=== PATIENT | female | born 1960 | race Caucasian/White ===

== ENCOUNTER → 2018-04-26 15:00 | Outpatient (CLI) | payer OTHER, SELFPAY | PROVIDERS: Family Provider Family Medicine; PCP Family Medicine | DX: Z23 Encounter for immunization (principal) | CPT/HCPCS: 90471; 90686 ==

== ENCOUNTER → 2018-07-05 08:52 | Outpatient (CLI) | payer OTHER, SELFPAY ==
--- NOTE | 2018-07-05 | DI.MG.S_ITS ---
BILATERAL DIGITAL SCREENING MAMMOGRAM 3D/2D WITH CAD: 07/05/2018 CLINICAL: Routine screening. Family history of breast cancer. Comparison is made to exams dated: 02/28/2017 mammogram, 02/25/2016 mammogram, and 12/10/2014 mammogram - [facility]. The tissue of both breasts is heterogeneously dense. This may lower the sensitivity of mammography. Current study was also evaluated with a Computer Aided Detection (CAD) system. No significant masses, calcifications, or other findings are seen in either breast. There has been no significant interval change. IMPRESSION: NEGATIVE There is no mammographic evidence of malignancy. A 1 year screening mammogram is recommended. This exam was interpreted at Station ID: [id number]. NOTE: For mammograms, a report in lay terms will be sent to the patient. Approximately 15% of breast malignancies will not be visualized mammographically. In the management of a palpable breast mass, a negative mammogram must not discourage biopsy of a clinically suspicious lesion. Electronically Signed By: Ibis nguyen/csar:07/05/2018 10:43:05 letter sent: Normal Exam ACR BI-RADS Category 1: Negative 3341F
== END ==
PROVIDERS: Family Provider Family Medicine; PCP Family Medicine; Visit Provider Family Medicine
DX: Z12.31 Encounter for screening mammogram for malignant neoplasm of breast (principal); Z80.3 Family history of malignant neoplasm of breast
CPT/HCPCS: 77063; 77067

== ENCOUNTER → 2019-05-17 17:20 | Outpatient (CLI) | payer OTHER, SELFPAY | PROVIDERS: PCP Family Medicine | DX: Z23 Encounter for immunization (principal) | CPT/HCPCS: 90471; 90686 ==

== ENCOUNTER → 2020-05-13 19:11 | Outpatient (CLI) | payer OTHER, SELFPAY | PROVIDERS: PCP Family Medicine; Referring Provider Internal Medicine; Visit Provider Internal Medicine | DX: Z23 Encounter for immunization (principal) | CPT/HCPCS: 90471; 90686 ==

== ENCOUNTER 2020-05-14 09:50 | Emergency (ER) | payer OTHER, SELFPAY ==
[2020-05-14] VITALS (23 sets, daily range): BP systolic 103–145; BP diastolic 64–95; PULSE 80–169; RESP 12–29; TEMP 36.1; O2SAT 97–100; BMI 24.3
--- NOTE | 2020-05-14 10:03 | DI.RAD.S_ITS ---
PROCEDURE: XR CHEST 2V INDICATIONS: shortness of breath TECHNIQUE: 2 views of the chest were acquired. COMPARISON: [facility], , CHEST 2 VIEW, 05/08/2015, 14:40. FINDINGS: Surgical changes and devices: None. Lungs and pleura: Lungs are clear. No pleural effusions or pneumothorax. Mediastinum: Mediastinal contours are normal. Heart size is normal. Bones and chest wall: No suspicious bony abnormalities. Soft tissues appear unremarkable. IMPRESSION: No acute cardiopulmonary pathology. Dictated by: Isidro Rosales M.D. on 05/14/2020 at 10:25 Approved by: Isidro Rosales M.D. on 05/14/2020 at 10:25
[2020-05-14 10:08] LABS: Add Manual Diff / Slide Review NO; Basophils Absolute Auto 0 /uL (0-100); Basophils Percent Auto 0.7 % (0-2); Eosinophils Absolute Auto 100 /uL (0-450); Eosinophils Percent Auto 1.9 % (2-4); Hematocrit 43.6 % (36-46); Lymphocytes Absolute Auto 1800 /uL (1100-4500); Lymphocytes Percent Auto 24.5 % (25-40); Mean Corpuscular HGB Conc 34.4 % (30-36); Mean Corpuscular Hemoglobin 33.3 PG (26-34); Monocytes Absolute Auto 900 /uL (0-900); Monocytes Percent Auto 11.9 % (3-14); Neutrophils Absolute Auto 4400 /uL (1500-7000); Platelet Count 227 X10^3/uL (150-400); White Blood Cell Count 7.3 X10^3/uL (4.5-11.0)
--- NOTE | 2020-05-14 10:20 | ED.ARRPALP ---
HPI - Arrhythmia/Palpitations General Chief Complaint: Arrhythmia/Palpitations Stated Complaint: a-fib/lightheaded/dizziness today Time Seen by Provider: 05/14/20 10:04 Source: patient Mode of arrival: Wheelchair Limitations: no limitations History of Present Illness HPI narrative: 59-year-old female with a history of atrial fibrillation. She has had this in the past. She has been cardioverted in the past for this was several years ago. She has also seen a client development consultant not currently on medications for anticoagulation. Has had episodes where they have resolved on their own. The episode that brought her to the emergency department today she states started this morning. Went to bed last evening without symptoms. Describes chest discomfort shortness of breath and lightheadedness. Has not tried anything for symptoms prior to arrival. Related Data Previous Rx's Medication Instructions Recorded rivaroxaban [Xarelto] 20 mg PO QPM #30 tab 05/14/20 Allergies Allergy/AdvReac Type Severity Reaction Status Date / Time No Known Drug Allergies Allergy Verified 05/14/20 10:01 Review of Systems Constitutional Constitutional: Denies fever(s) and Denies headache(s) ENT Ears, Nose, Mouth, and Throat: Denies headache(s) Cardiovascular Cardiovascular: Reports chest pain, Reports rapid heart rate, Reports irregular heart rhythm and Reports dyspnea Respiratory Respiratory: Denies cough and Reports dyspnea Gastrointestinal Gastrointestinal: Denies abdominal pain, Denies nausea and Denies vomiting Genitourinary Genitourinary: Denies dysuria Genitourinary: Denies dysuria Musculoskeletal Musculoskeletal: Denies arthralgias and Denies myalgias Integumentary/Breasts Skin/Breast: Denies rash Neurologic Neurologic: Denies behavioral changes and Denies headache(s) Psychiatric Psychiatric: Denies behavioral changes Hematologic/Lymphatic Hematologic/Lymphatic: Denies easy bleeding and Denies easy bruising Allergic/Immunologic Allergic/Immunologic: Denies urticaria Patient History Medical History Atrial fibrillation (Acute) Social History Smoking Status: Unknown if ever smoked Smoking Status: Unknown if ever smoked alcohol intake frequency: 3 or more drinks per day Substance Use Type: marijuana Exam Initial Vital Signs Initial Vital Signs: Vital Signs Temperature 97.0 F L 05/14/20 09:55 Pulse Rate 155 H 05/14/20 09:55 Respiratory Rate 23 05/14/20 09:55 Blood Pressure 145/95 H 05/14/20 09:55 Pulse Oximetry 99 05/14/20 09:55 Const General: cooperative and No comfortable (Uncomfortable) Limitations: mental status not altered HENMT Head: normal to inspection and normocephalic Resp Effort & Inspection: normal respiratory effort Auscultation: clear to auscultation bilaterally Cardio Rate: tachycardic Rhythm: abnormal rhythm Pulses: radial pulses present GI Inspection: non-distended Palpation: soft Skin Lesions: no lesions Rashes: no rashes Neuro General: patient alert and patient awake Cognition: normal cognition Speech: speech normal Extrem General: normal to inspection and capillary refill normal Psych Appearance: grossly normal and well kempt Procedures Cardioversion Consent Signed: Yes Indication: AFib with RVR Stability: Stable Number of attempts (shocks): 1 Joules used: 150 Cardiac rhythm post-cardioversion: Sinus rhythm Procedural Sedation Consent signed: Yes Time out performed: Yes Indication: cardioversion ASA Class: II Mallampati Airway Classification: Class II Preparation: solder leveler printed circuit boards applied, pulse oximeter, capnometry used, supplemental O2 applied and reversal agents at bedside IV Propofol dose (mg): 100 ED Sedation Level: Moderate (Concious) Patient Tolerated Procedure: No complications Complications: none Course Orders Ordered: ED Orders 05/14/20 10:00 Complete Blood Count AUTO DIFF Stat Comprehensive Metabolic Panel Stat Lactate (Lactic Acid) Stat 05/14/20 10:03 XR chest 2V Stat EKG-12 Lead Stat Measure peak expiratory flow ONCE RT Consult Eval and Treat Now 05/14/20 10:25 RT Consult Eval and Treat Now Discontinued Medications Propofol (Diprivan) 100 mg IV NOW ONE Stop: 05/14/20 10:25 Last Admin: 05/14/20 10:42 Dose: 100 mg Documented by: CARMEN Rivaroxaban (Xarelto) 20 mg PO NOW ONE Stop: 05/14/20 11:59 Last Admin: 05/14/20 12:04 Dose: 20 mg Documented by: GEO Vital Signs Vital signs: Vital Signs - 8 hr 05/14/20 09:55 05/14/20 10:03 05/14/20 10:05 Temperature 97.0 F L Pulse Rate 155 H 145 H 158 H Respiratory Rate 23 15 16 Blood Pressure 145/95 H Blood Pressure [Left Arm] Pulse Oximetry 99 100 100 05/14/20 10:16 05/14/20 10:20 05/14/20 10:25 Temperature Pulse Rate 109 H 166 H 169 H Respiratory Rate 26 H 22 Blood Pressure 104/70 Blood Pressure [Left Arm] Pulse Oximetry 100 100 100 05/14/20 10:30 05/14/20 10:35 05/14/20 10:46 Temperature Pulse Rate 151 H 154 H 157 H Respiratory Rate 25 H 16 22 Blood Pressure 105/77 Blood Pressure [Left Arm] 105/77 Pulse Oximetry 100 100 100 05/14/20 10:50 05/14/20 10:55 05/14/20 11:00 Temperature Pulse Rate 86 82 80 Respiratory Rate 28 H 29 H Blood Pressure 115/78 117/74 103/70 Blood Pressure [Left Arm] Pulse Oximetry 97 100 100 05/14/20 11:05 05/14/20 11:10 05/14/20 11:15 Temperature Pulse Rate 82 80 82 Respiratory Rate 17 23 26 H Blood Pressure 107/68 105/64 110/65 Blood Pressure [Left Arm] Pulse Oximetry 97 100 97 05/14/20 11:20 05/14/20 11:25 05/14/20 11:30 Temperature Pulse Rate 85 83 87 Respiratory Rate 16 12 18 Blood Pressure 108/68 112/70 115/71 Blood Pressure [Left Arm] Pulse Oximetry 99 99 97 05/14/20 11:35 05/14/20 11:40 05/14/20 11:45 Temperature Pulse Rate 87 94 H 92 H Respiratory Rate 13 20 19 Blood Pressure 114/70 116/70 115/72 Blood Pressure [Left Arm] Pulse Oximetry 98 97 97 05/14/20 11:50 Temperature Pulse Rate 91 H Respiratory Rate 20 Blood Pressure 128/75 Blood Pressure [Left Arm] Pulse Oximetry 98 MDM - Arrhythmia/Palpitations Lab Data Attestation: I reviewed the patient's lab results. Result diagrams: 05/14/20 10:00 05/14/20 10:00 Labs: Lab Results 05/14/20 05/14/20 05/14/20 Range/Units 10:00 10:00 10:00 WBC 7.3 (4.5-11.0) X10^3/uL RBC 4.50 (4.0-5.2) X10^6/uL Hgb 15.0 (12.0-16.0) g/dL Hct 43.6 (36-46) % MCV 97.0 (80-100) fL MCH 33.3 (26-34) PG MCHC 34.4 (30-36) % RDW 15.0 H (11.6-14.8) % Plt Count 227 (150-400) X10^3/uL Neut % (Auto) 61.0 (50-75) % Lymph % (Auto) 24.5 L (25-40) % [place] % (Auto) 11.9 (3-14) % Eos % (Auto) 1.9 L (2-4) % Baso % (Auto) 0.7 (0-2) % Neut # (Auto) 4400 (6127-9872) /uL Lymph # (Auto) 1800 (4638-4946) /uL [place] # (Auto) 900 (0-900) /uL Eos # (Auto) 100 (0-450) /uL Baso # (Auto) 0 (0-100) /uL Sodium 138 (137-145) mmol/L Potassium 4.0 (3.4-5.1) mmol/L Chloride 100 (98-107) mmol/L Carbon Dioxide 28 (22-32) mmol/L BUN 8 (7-17) mg/dL Creatinine 0.77 (0.52-1.04) mg/dL Estimated GFR > 60.0 (>60) mL/min BUN/Creatinine Ratio 10.4 (6-22) Glucose 141 H (70-100) mg/dL Lactate 1.9 (0.7-2.1) mmol/L Calcium 10.1 (8.4-10.2) mg/dL Total Bilirubin 0.8 (0.2-1.3) mg/dL AST 45 H (14-36) IU/L ALT 35 H (<35) IU/L Alkaline Phosphatase 73 (38-126) U/L Total Protein 8.7 H (6.3-8.2) g/dL Albumin 4.8 (3.5-5.0) g/dL Globulin 3.9 (1.7-4.1) g/dL Albumin/Globulin Ratio 1.2 (1.0-2.8) Point of Care Testing Test Results Not applicable Imaging Data CT scan - head: Radiologist's Impresson: [place] [id number] [place] [id number] XRay Report Signed Patient: Galileo Voss#: [id number] : 2Acct:[id number] Age/Sex: 59 / FDate of Service: 05/14/20 Loc: ED Accession Number: [id number] Procedure: XR chest 2V Ordering Provider: Yoni Cortes D.O. PROCEDURE: XR CHEST 2V INDICATIONS: shortness of breath TECHNIQUE: 2 views of the chest were acquired. COMPARISON: [facility], , CHEST 2 VIEW, 05/08/2015, 14:40. FINDINGS: Surgical changes and devices: None. Lungs and pleura: Lungs are clear. No pleural effusions or pneumothorax. Mediastinum: Mediastinal contours are normal. Heart size is normal. Bones and chest wall: No suspicious bony abnormalities. Soft tissues appear unremarkable. IMPRESSION: No acute cardiopulmonary pathology. Dictated by: Isidro Rosales M.D. on 05/14/2020 at 10:25 Approved by: Isidro Rosales M.D. on 05/14/2020 at 10:25 ECG Data Attestation: I personally reviewed and interpreted this ECG as follows: Prior ECG tracings: not available for review Interpretation: EKG upon arrival Atrial flutter/fibrillation Ventricular rate of 14 8 Normal axis Post cardioversion EKG Sinus rhythm Ventricular rate is 71 Left axis deviation MDM Narrative Medical decision making narrative: Patient arrived less than 24 hours of the onset of her symptoms. She was AFib with RVR. Not hypotensive. Not altered. Discussed her options to include rhythm control with cardioversion and sedation verses rate control with medications. Discussed risks and benefits of each to include sedations in the risk and benefits of this and also the possibility being admitted to the hospital. We also discussed that with the cardioversion there is a potential that would be unsuccessful and would not guarantee that the symptoms did not return. After this discussion with family at bedside she opted for sedation and cardioversion. Consent was signed. She was sedated with propofol and cardioverted with 1 attempt without issue. She was given a dose of anticoagulation here and sent home with a prescription for this. She is going to contact her primary provider about a Holter monitor verses a referral to see Cardiology once again. She was given return precautions and follow-up instructions. She expressed understanding and agreement. Critical Care Time Critical Care Time Critical Care Time: Yes Total Critical Care Time: 35 Attestation: The high probability of a clinically significant, sudden or life threatening deterioration of the cardiovascular system(s) required my full and direct attention, intervention and personal management. The aggregate critical care time was 35 minutes. This time is in addition to time spent performing reported procedures but includes the following: [X] Data Review and interpretation [FX] Patient assessment and monitoring of vital signs [X] Documentation [FX] Medication orders and management Discharge Plan Departure Patient Disposition: Home Clinical Impression: Atrial fibrillation Qualifiers: Atrial fibrillation type: unspecified Qualified Code(s): I48.91 - Unspecified atrial fibrillation Instructions: DI for Atrial Fibrillation Activity Restrictions/Additional Instructions: I do recommend that you take the anticoagulation as directed. Also recommend you contact your primary doctor to discuss further workup to include either a Holter monitor or referral to see Cardiology. Return to the emergency department for any new or worsening symptoms Prescriptions: New Xarelto 20 mg tablet 20 mg PO QPM Qty: 30 RF: 0 Referrals: Nhung Guerrero MD [Primary Care Provider] -
[2020-05-14 10:25] LABS: Lactate (Lactic Acid) 1.9 mmol/L (0.7-2.1)
[2020-05-14 10:26] LABS: Alanine Aminotransferase 35 IU/L (<35); Albumin 4.8 g/dL (3.5-5.0); Albumin Globulin Ratio 1.2 (1.0-2.8); Alkaline Phosphatase 73 U/L (38-126); Aspartate Aminotransferase 45 IU/L (14-36); BUN Creatinine Ratio 10.4 (6-22); Bilirubin Total 0.8 mg/dL (0.2-1.3); Blood Urea Nitrogen 8 mg/dL (7-17); Calcium 10.1 mg/dL (8.4-10.2); Carbon Dioxide 28 mmol/L (22-32); Chloride 100 mmol/L (98-107); Estimated Glomerular Filt Rate > 60.0 mL/min (>60); Globulin 3.9 g/dL (1.7-4.1); Glucose 141 mg/dL (70-100); HEMOLYSIS 15 (0-50); Sodium 138 mmol/L (137-145); Total Protein 8.7 g/dL (6.3-8.2)
[2020-05-14] MEDS: propofoL 200 MG/20 ML VIAL 100 MG IV (10:42)
[2020-05-14] MEDS: RIVAROXABAN 10 MG TABLET 20 MG PO (12:04)
--- NOTE | 2020-06-30 16:12 | PC.NURSE ---
Procedural stop time [id number]
== END 2020-05-14 12:37 | disposition home or self-care (01) ==
PROVIDERS: Emergency Provider Emergency Medicine; PCP Family Medicine
DX: I48.91 Unspecified atrial fibrillation (principal); Z79.01 Long term (current) use of anticoagulants; R06.02 Shortness of breath
CPT/HCPCS: 36415; 71046; 80053; 83605; 85025; 92960; 93005; 99152; 99153; 99285; 99291; J2704

== ENCOUNTER → 2020-06-04 14:16 | Outpatient (CLI) | payer OTHER, SELFPAY ==
--- NOTE | 2020-06-04 | DI.MG.S_ITS ---
BILATERAL DIGITAL SCREENING MAMMOGRAM 3D/2D WITH CAD: 06/04/2020 CLINICAL: Routine screening. Family history of breast cancer. Comparison is made to exams dated: 07/05/2018 mammogram, 02/28/2017 mammogram, and 02/25/2016 mammogram - [facility]. The tissue of both breasts is heterogeneously dense. This may lower the sensitivity of mammography. Current study was also evaluated with a Computer Aided Detection (CAD) system. No significant masses, calcifications, or other findings are seen in either breast. There has been no significant interval change. IMPRESSION: NEGATIVE There is no mammographic evidence of malignancy. A 1 year screening mammogram is recommended. This exam was interpreted at Station ID: [id number]. NOTE: For mammograms, a report in lay terms will be sent to the patient. Approximately 15% of breast malignancies will not be visualized mammographically. In the management of a palpable breast mass, a negative mammogram must not discourage biopsy of a clinically suspicious lesion. Electronically Signed By: Elisabeth luu/scar:06/04/2020 17:24:55 letter sent: Normal Exam ACR BI-RADS Category 1: Negative 3341F
== END ==
PROVIDERS: PCP Family Medicine; Referring Provider Family Medicine; Visit Provider Family Medicine
DX: Z12.31 Encounter for screening mammogram for malignant neoplasm of breast (principal); Z80.3 Family history of malignant neoplasm of breast
CPT/HCPCS: 77063; 77067

== ENCOUNTER → 2020-08-14 11:09 | Outpatient (CLI) | payer OTHER, SELFPAY ==
[2020-08-14] MEDS: COVID-19 VACC(MODERNA-1)/PF 100 MCG/0.5 ML VIAL IM (11:14)
== END ==
PROVIDERS: PCP Family Medicine; Visit Provider Internal Medicine
DX: Z23 Encounter for immunization (principal)
CPT/HCPCS: 0011A; 91301

== ENCOUNTER → 2020-09-10 10:44 | Outpatient (CLI) | payer OTHER, SELFPAY ==
[2020-09-10] MEDS: COVID-19 VACC #2, MRNA(MOD) 100 MCG/0.5 ML VIAL IM (10:49)
== END ==
PROVIDERS: PCP Family Medicine; Visit Provider Internal Medicine
DX: Z23 Encounter for immunization (principal)
CPT/HCPCS: 0012A; 91301

== ENCOUNTER → 2021-06-04 13:35 | Outpatient (CLI) | payer OTHER, SELFPAY | PROVIDERS: PCP Family Medicine; Referring Provider Internal Medicine; Visit Provider Internal Medicine | DX: Z23 Encounter for immunization (principal) | CPT/HCPCS: 90471; 90686 ==

== ENCOUNTER → 2021-11-11 09:23 | Outpatient (CLI) | payer OTHER, SELFPAY ==
[2021-11-11 10:25] LABS: Add Manual Diff / Slide Review NO; Basophils Absolute Auto 0 /uL (0-100); Basophils Percent Auto 1.2 % (0-2); Eosinophils Absolute Auto 200 /uL (0-450); Eosinophils Percent Auto 5.6 % (2-4); Hematocrit 37.3 % (36-46); Hemoglobin 12.9 g/dL (12.0-16.0); Lymphocytes Absolute Auto 1300 /uL (1100-4500); Lymphocytes Percent Auto 33.6 % (25-40); Mean Corpuscular HGB Conc 34.5 % (30-36); Mean Corpuscular Hemoglobin 33.3 PG (26-34); Mean Corpuscular Volume 96.4 fL (80-100); Monocytes Absolute Auto 400 /uL (0-900); Neutrophils Absolute Auto 1900 /uL (1500-7000); Neutrophils Percent Auto 48.6 % (50-75); Platelet Count 192 X10^3/uL (150-400); Red Blood Cell Count 3.87 X10^6/uL (4.0-5.2); Red Cell Distribution Width 14.4 % (11.6-14.8); White Blood Cell Count 3.9 X10^3/uL (4.5-11.0)
[2021-11-11 10:39] LABS: Alanine Aminotransferase 19 IU/L (<35); Albumin 4.8 g/dL (3.5-5.0); Albumin Globulin Ratio 1.4 (1.0-2.8); Alkaline Phosphatase 59 U/L (38-126); Aspartate Aminotransferase 31 IU/L (14-36); BUN Creatinine Ratio 11.4 (6-22); Bilirubin Total 0.5 mg/dL (0.2-1.3); Blood Urea Nitrogen 8 mg/dL (7-17); Calcium 9.5 mg/dL (8.4-10.2); Carbon Dioxide 27 mmol/L (22-32); Chloride 103 mmol/L (98-107); Estimated Glomerular Filt Rate > 60.0 mL/min (>60); Globulin 3.5 g/dL (1.7-4.1); Glucose 84 mg/dL (70-100); HEMOLYSIS < 15 (0-50); Potassium 4.3 mmol/L (3.4-5.1); Sodium 140 mmol/L (137-145); Total Protein 8.3 g/dL (6.3-8.2)
[2021-11-11 10:50] LABS: LDL Cholesterol Direct 118 mg/dL (<100)
[2021-11-11 11:02] LABS: Vitamin D 25 Hydroxy (D3) 59.6 ng/mL (30.0-100.0)
[2021-11-11 11:14] LABS: Thyroid Stimulating Hormone 1.83 uIU/mL (0.47-4.68)
== END ==
PROVIDERS: PCP Family Medicine; Referring Provider Family Medicine; Visit Provider Family Medicine
DX: Z00.00 Encounter for general adult medical examination without abnormal findings (principal); E55.9 Vitamin D deficiency, unspecified
CPT/HCPCS: 36415; 80053; 82306; 83721; 84443; 85025

== ENCOUNTER → 2021-11-26 15:08 | Outpatient (CLI) | payer OTHER, SELFPAY ==
--- NOTE | 2021-12-16 10:52 | P.HOLT.S_ITS ---
Auto Mechanic Apprentice Report Referral & Results Date Patient Seen: 11/26/21 Requesting provider: Nhung Guerrero Indication: Atrial fibrillation Duration of monitoring (days): 13 Diary information: There were 3 patient triggered events and 3 patient diary entries Patient triggered events were variably associated with (within 45 seconds) sinus rhythm, PACs and PVCs Patient diary events were variably associated with (within 45 seconds) sinus rhythm and PVCs Data: Minimum heart rate identified was 50 beats per minute at 16:38 on 12/01/2021 Maximum sinus heart rate was 130 beats per minute at 20:30 on 12/02/2021 Maximum overall heart rate was 210 beats per minute at 12:46 on 12/06/2021 during a run of SVT Less than 1% of identified beats were supraventricular ectopic in origin which classify them as rare Approximately 2.6% of identified beats were ventricular ectopic in origin which would classify them as occasional. This included a 3.2 second run of ventricular bigeminy and 16.7 second run of ventricular trigeminy There were 51 runs of SVT with the fastest being a 20.3 second run at a rate of 210 beats per minute. This was also the longest run There were no pauses of 3 seconds or longer or episodes of atrial fibrillation identified on this study Impression: 13 day monitoring and evaluation advisor demonstrating rare brief runs of SVT as well as occasional PVCs No atrial fibrillation Clinical correlation suggested
== END ==
PROVIDERS: PCP Family Medicine; Referring Provider Family Medicine; Visit Provider Family Medicine
DX: I48.91 Unspecified atrial fibrillation (principal)
CPT/HCPCS: 93246; 93248

== ENCOUNTER → 2021-12-25 09:12 | Outpatient (CLI) | payer OTHER, SELFPAY ==
--- NOTE | 2021-12-25 | DI.MG.S_ITS ---
BILATERAL DIGITAL SCREENING MAMMOGRAM 3D/2D WITH CAD: 12/25/2021 CLINICAL: Routine screening. Family history of breast cancer. Comparison is made to exams dated: 06/04/2020 mammogram, 07/05/2018 mammogram, and 02/28/2017 mammogram - [facility]. The tissue of both breasts is heterogeneously dense. This may lower the sensitivity of mammography. Current study was also evaluated with a Computer Aided Detection (CAD) system. No significant masses, calcifications, or other findings are seen in either breast. There has been no significant interval change. IMPRESSION: NEGATIVE There is no mammographic evidence of malignancy. A 1 year screening mammogram is recommended. This exam was interpreted at Station ID: [id number]. NOTE: For mammograms, a report in lay terms will be sent to the patient. Approximately 15% of breast malignancies will not be visualized mammographically. In the management of a palpable breast mass, a negative mammogram must not discourage biopsy of a clinically suspicious lesion. Electronically Signed By: Henrik aguila/scar:12/25/2021 10:18:30 letter sent: Normal Exam ACR BI-RADS Category 1: Negative 3341F
== END ==
PROVIDERS: PCP Family Medicine; Referring Provider Family Medicine; Visit Provider Family Medicine
DX: Z12.31 Encounter for screening mammogram for malignant neoplasm of breast (principal); Z80.3 Family history of malignant neoplasm of breast
CPT/HCPCS: 77063; 77067

== ENCOUNTER → 2022-01-06 07:54 | Outpatient (CLI) | payer OTHER, SELFPAY ==
--- NOTE | 2022-01-06 | DI.ECHO.S_ITS ---
[facility]---------[facility] +---------+ : : [address] : : : : [id number] : : : : Phone: [phone] Echocardiogram Report + + :Name: PAULO FUNG Study Date: 01/06/2022 Height: 68 in : :[facility] ReadingLocation: Weight: 170 lb : : Gender: Female BSA: 1.9 m2 : :: 1960 Age: 61 yrs BP: 137/80 mmHg: :Reason For Study: ATRIAL FIBRILLATION : :Ordering Physician: NORMAN, : :MARILEE Performed By: Leilani Ho : :Referring: MARILEE AUSTIN : + + Interpretation Summary 1) Normal left ventricular size, thickness, wall motion, and systolic function (EF 55-60%). 2) Normal right ventricular size and function. 3) No significant valvular abnormalities. 4) Compared to the Echo done 04/24/2015, no significant change. Procedure: A two-dimensional transthoracic echocardiogram with color flow and Doppler was performed. The study quality was technically adequate. Comparison is made with the echocardiogram of 04/24/2015. The patient was in sinus rhythm with heart rates between 66-74 bpm during the exam. Left Ventricle: The left ventricle is normal in size and wall thickness. The ejection fraction is estimated to be 55-60%. Left ventricular systolic function appears normal without focal wall motion abnormalities. Diastolic parameters suggest a relaxation abnormality of the left ventricle, consistent with probable normal filling pressures. Right Ventricle: The right ventricle is normal in size and function. Atria: The left atrium is moderately dilated. Right atrial size is normal. There is no Doppler evidence for an interatrial shunt. Mitral Valve: The mitral valve is normal in structure and function. There is mild mitral regurgitation. Aortic Valve: The aortic valve is trileaflet. The aortic valve opens well. There is no aortic valve stenosis. No aortic regurgitation is present. Tricuspid Valve: The tricuspid valve is normal in structure and function. There is trace tricuspid regurgitation. The right ventricular systolic pressure is estimated to be at least 23 mmHg based on an estimated right atrial pressure of 3 mm Hg. Pulmonic Valve: The pulmonic valve is not well seen, but is grossly normal. There is no pulmonic valvular regurgitation. Great Vessels: The aortic root is normal size. The dimensions of the ascending aorta are normal. The IVC is of normal diameter and collapses greater than 50% with a sniff. This suggests a low right atrial pressure of 3 mm Hg. Pericardium/ Pleura There is no pericardial effusion. There is no pleural effusion. MMode/2D Measurements & Calculations LVIDd: 4.9 cm LVOT diam: 2.0 cm LVIDs: 3.6 cm Ao root diam: 3.0 cm FS: 26.2 % asc Aorta Diam: 3.1 cm IVSd: 0.71 cm Ao Arch Diam (Prox Trans): 2.5 cm LVPWd: 0.71 cm LV shelton. diameter/BSA (cm/m^2): 2.6 LV sys. diameter/BSA (cm/m^2): 1.9 LA A2 area: 24.1 cm2 RA long axis: 5.0 cm LA A4 area: 20.0 cm2 RA area: 18.4 cm2 LA length (vol): 5.2 cm RA vol: 57.4 ml LA vol: 78.3 ml RA : 30.1 ml/m2 LA vol index: 41.1 ml/m2 IVC diam: 0.86 cm RVD1 (basal): 4.0 cm RVD2 (mid): 3.7 cm TAPSE: 2.2 cm Doppler Measurements & Calculations Ao V2 max: 118.4 cm/sec LVOT Max Jacob: 101.8 cm/sec Ao V2 mean: 78.3 cm/sec LV V1 max P.1 mmHg Ao max P.6 mmHg LV V1 VTI: 23.1 cm Ao mean P.8 mmHg DL(I,D): 3.3 cm2 Ao V2 VTI: 23.0 cm DL(V,D): 2.8 cm2 sev ratio: 1.0 DL indexed to BSA (cm^2/m^2): 1.7 MV E max jacob: 60.3 cm/sec TR max jacob: 226.4 cm/sec MV A max jacob: 53.8 cm/sec TR max P.5 mmHg MV E/A: 1.1 PA V2 max: 72.3 cm/sec Med Peak E' Jacob: 10.1 cm/sec PA V2 mean: 48.2 cm/sec E/E' med: 6.0 PA mean P.1 mmHg Lat Peak E' Jacob: 12.5 cm/sec PA pr(Accel): 7.1 mmHg E/E' lat: 4.8 E/e' average: 5.4 MV dec time: 0.27 sec SV(LVOT): 76.0 ml Reading Physician:09:00 AM
== END ==
PROVIDERS: PCP Family Medicine; Referring Provider Family Medicine; Visit Provider Family Medicine
DX: I48.0 Paroxysmal atrial fibrillation (principal); I34.0 Nonrheumatic mitral (valve) insufficiency
CPT/HCPCS: 93306

== ENCOUNTER 2023-01-05 16:49 | Emergency (ER) | payer OTHER, SELFPAY ==
[2023-01-05] VITALS (18 sets, daily range): BP systolic 135–163; BP diastolic 70–90; PULSE 72–146; RESP 16–29; TEMP 36.5–37.2; O2SAT 77–100; BMI 27.3
--- NOTE | 2023-01-05 16:57 | ED_ITS ---
HPI - Arrhythmia/Palpitations General Chief Complaint: Arrhythmia/Palpitations Stated Complaint: irregular rhythm Time Seen by Provider: 01/05/23 16:55 History of Present Illness HPI narrative: This is a 62-year-old female with history of AFib, alcohol abuse with complaint of atrial fibrillation and fast heart rate and dizziness. Patient states she started having symptoms about 9:00 a.m. this morning she is felt very dizzy she is had some nausea couple episodes of vomiting. She is had a little bit of diarrhea. She is felt shaky even before her dizziness and fast heart rate. She thought her symptoms might improve so she did not come into the emergency department. Patient denies fevers, no headache, no vision changes, she states she feels dizzy. She denies any chest pain or pressure, she is felt short of breath today. She states it started at 9:00 a.m. this morning. Patient had some nausea and vomiting. She states no diarrhea but she is had a lot of gas. She denies abdominal pain, back or flank pain. Patient denies any urinary symptoms. Denies swelling in her extremities. She states her only medication is beta-matthew she does not recall the name, she states she is not on any anticoagulation, no aspirin. She denies any recent surgeries. She does drink 5-6 alcoholic drinks daily she had quit for a couple months and then started drinking again and just stopped drinking 3 days ago. Patient did not think she was having any withdrawals. Uses THC. Denies other illicit. Primary care is Mag Guerrero. Related Data Previous Rx's Medication Instructions Recorded rivaroxaban 20 mg tablet (Xarelto) 20 mg PO QPM #30 tabs 05/14/20 Allergies Allergy/AdvReac Type Severity Reaction Status Date / Time No Known Drug Allergies Allergy Verified 05/14/20 10:01 Review of Systems Review of Systems ROS Unobtainable: All systems reviewed & are unremarkable except as noted in HPI and below Patient History Medical History (Updated 01/05/23 @ 18:49 by Kaylie Tinajero DO) Atrial fibrillation Social History Smoking Status: Unknown if ever smoked Smoking Status: Unknown if ever smoked alcohol intake frequency: 3 or more drinks per day Substance Use Type: marijuana Exam Narrative Exam Narrative: GENERAL: Alert and oriented x three, female in moderate distress. Patient is slightly shaky. HEENT: Head normocephalic, atraumatic, EOMI, pupils reactive, face symmetric, moist mucous membranes NECK: Supple, full range of motion CARDIOVASCULAR: Irregularly irregular and tachycardic rate and rhythm without murmurs, rubs or gallops. No JVD. No swelling bilateral lower extremities. RESPIRATORY: Breath sounds equal bilaterally, no wheezes rales or rhonchi. No tachypnea or accessory muscle use. Patient's speaks in full sentences. ABDOMEN: Soft, nontender. Normoactive bowel sounds all 4 quadrants. No guarding or rebound, rigidity, no mass : No CVA tenderness EXTREMITIES: Normal range of motion, no clubbing or edema. Neurovascularly intact NEUROLOGICAL: Cranial nerves II through XII grossly intact. Moving all extremit ies SKIN: Warm, dry, no petechiae, no rashes or lesions. Initial Vital Signs Initial Vital Signs: Vital Signs Pulse Rate 125 H 01/05/23 16:55 Respiratory Rate 29 H 01/05/23 16:55 Course Orders Ordered: Discontinued Medications Diltiazem HCl (Diltiazem 5 Mg/Ml Sdv) 10 mg IV NOW ONE Stop: 01/05/23 17:03 Last Admin: 01/05/23 18:00 Dose: Not Given Documented By: DAVE Sodium Chloride (Normal Saline 0.9%) 1,000 mls @ 1,000 mls/hr IV BOLUS ONE Stop: 01/05/23 18:01 Last Infusion: 01/05/23 18:28 Dose: 0 mls/hr Documented By: Admin: 01/05/23 17:15 Dose: 1,000 mls/hr Documented By: DAVE Phenobarbital (Phenobarbital 65 Mg/Ml Vial) 260 mg IV NOW ONE Stop: 01/05/23 17:24 Last Admin: 01/05/23 17:36 Dose: 260 mg Documented By: DAVE Vital Signs Vital signs: Vital Signs - 8 hr 01/05/23 16:58 01/05/23 17:03 01/05/23 17:03 Temperature 99 F 97.7 F 97.7 F Pulse Rate 126 H 126 H 146 H Respiratory Rate 18 20 Blood Pressure 163/90 H 163/90 H 144/70 H Pulse Oximetry 99 97 97 Oxygen Delivery Method Room Air Room Air Room Air Oxygen Flow Rate 01/05/23 16:55 01/05/23 16:57 01/05/23 16:57 Temperature Pulse Rate 125 H 126 H Respiratory Rate 29 H 28 H Blood Pressure 163/90 H Pulse Oximetry 100 Oxygen Delivery Method Oxygen Flow Rate 01/05/23 17:00 01/05/23 17:00 01/05/23 17:25 Temperature Pulse Rate 126 H 76 Respiratory Rate 27 H 19 Blood Pressure 144/70 H Pulse Oximetry 100 100 Oxygen Delivery Method Room Air Oxygen Flow Rate 01/05/23 17:25 01/05/23 17:30 01/05/23 17:30 Temperature Pulse Rate 74 Respiratory Rate 23 Blood Pressure 140/72 148/77 H Pulse Oximetry 100 Oxygen Delivery Method Oxygen Flow Rate 01/05/23 17:40 01/05/23 17:40 01/05/23 17:50 Temperature Pulse Rate 75 74 Respiratory Rate 24 20 Blood Pressure 143/75 H Pulse Oximetry 100 95 Oxygen Delivery Method Oxygen Flow Rate 01/05/23 17:50 01/05/23 18:00 01/05/23 18:00 Temperature Pulse Rate 72 Respiratory Rate 16 Blood Pressure 141/75 H 135/77 Pulse Oximetry 100 Oxygen Delivery Method Nasal Cannula Oxygen Flow Rate 2 01/05/23 18:30 01/05/23 17:54 01/05/23 17:53 Temperature Pulse Rate 75 Respiratory Rate 20 Blood Pressure Pulse Oximetry 99 77 L 91 Oxygen Delivery Method Nasal Cannula Room Air Room Air Oxygen Flow Rate 2 01/05/23 19:10 01/05/23 19:00 01/05/23 19:32 Temperature Pulse Rate 87 90 Respiratory Rate 20 Blood Pressure Pulse Oximetry 94 99 Oxygen Delivery Method Room Air Nasal Cannula Oxygen Flow Rate 2 01/05/23 19:34 01/05/23 19:34 Temperature Pulse Rate 90 Respiratory Rate 21 Blood Pressure 141/87 H Pulse Oximetry 98 Oxygen Delivery Method Oxygen Flow Rate MDM - Arrhythmia/Palpitations Lab Data 01/05/23 17:25 01/05/23 17:25 Labs: Lab Results 01/05/23 01/05/23 01/05/23 Range/Units 17:25 17:25 17:25 WBC 4.6 (4.5-11.0) X10^3/uL RBC 4.47 (4.0-5.2) X10^6/uL Hgb 13.6 (12.0-16.0) g/dL Hct 39.8 (36-46) % MCV 89.2 (80-100) fL MCH 30.5 (26-34) PG MCHC 34.2 (30-36) % RDW 15.5 H (11.6-14.8) % Plt Count 165 (150-400) X10^3/uL Neut % (Auto) 76.5 H (50-75) % Lymph % (Auto) 16.3 L (25-40) % [place] % (Auto) 6.4 (3-14) % Eos % (Auto) 0.1 L (2-4) % Baso % (Auto) 0.7 (0-2) % Neut # (Auto) 3500 (5508-0733) /uL Lymph # (Auto) 700 L (4850-0456) /uL [place] # (Auto) 300 (0-900) /uL Eos # (Auto) 0 (0-450) /uL Baso # (Auto) 0 (0-100) /uL PT 12.2 (10.1-12.7) SECONDS INR 1.1 (0.9-1.3) APTT 25 L (26-36) SECONDS D-Dimer 557 H (<500) ng/ml Sodium 135 L (137-145) mmol/L Potassium 3.6 (3.4-5.1) mmol/L Chloride 99 (98-107) mmol/L Carbon Dioxide 19 L (22-32) mmol/L BUN 7 (7-17) mg/dL Creatinine 0.66 (0.52-1.04) mg/dL Estimated GFR > 60 (>60) mL/min BUN/Creatinine Ratio 10.6 (6-22) Glucose 184 H (80-110) mg/dL Calcium 9.3 (8.4-10.2) mg/dL Total Bilirubin 1.9 H (0.2-1.3) mg/dL AST 31 (14-36) IU/L ALT 24 (<35) IU/L Alkaline Phosphatase 95 (38-126) U/L Total Creatine Kinase 101 (30-135) U/L CK-MB (CK-2) TNP CK-MB (CK-2) Rel Index TNP Troponin I 0.012 (0.01-0.034) ng/mL NT-Pro-B Natriuret Pep (<125) pg/mL Total Protein 7.9 (6.3-8.2) g/dL Albumin 4.5 (3.5-5.0) g/dL Globulin 3.4 (1.7-4.1) g/dL Albumin/Globulin Ratio 1.3 (1.0-2.8) Lipase 132 (23-300) U/L TSH (0.47-4.68) uIU/mL U Opiates 300ng/mL cut (Negative) Ur Oxycodone Screen (Negative) Urine Methadone Screen (Negative) Ur Barbiturates Screen (Negative) U Tricyclic Antidepress (Negative) Ur Phencyclidine Scrn (Negative) Ur Amphetamines Screen (Negative) U Methamphetamines Scrn (Negative) Ur MDMA Scrn (Ecstasy) (Negative) U Benzodiazepines Scrn (Negative) Urine Cocaine Screen (Negative) U Marijuana (THC) Screen (Negative) Ethyl Alcohol ( - 10) mg/dL 01/05/23 01/05/23 01/05/23 Range/Units 17:25 17:25 18:24 WBC (4.5-11.0) X10^3/uL RBC (4.0-5.2) X10^6/uL Hgb (12.0-16.0) g/dL Hct (36-46) % MCV (80-100) fL MCH (26-34) PG MCHC (30-36) % RDW (11.6-14.8) % Plt Count (150-400) X10^3/uL Neut % (Auto) (50-75) % Lymph % (Auto) (25-40) % [place] % (Auto) (3-14) % Eos % (Auto) (2-4) % Baso % (Auto) (0-2) % Neut # (Auto) (9783-0783) /uL Lymph # (Auto) (8118-2553) /uL [place] # (Auto) (0-900) /uL Eos # (Auto) (0-450) /uL Baso # (Auto) (0-100) /uL PT (10.1-12.7) SECONDS INR (0.9-1.3) APTT (26-36) SECONDS D-Dimer (<500) ng/ml Sodium (137-145) mmol/L Potassium (3.4-5.1) mmol/L Chloride (98-107) mmol/L Carbon Dioxide (22-32) mmol/L BUN (7-17) mg/dL Creatinine (0.52-1.04) mg/dL Estimated GFR (>60) mL/min BUN/Creatinine Ratio (6-22) Glucose (80-110) mg/dL Calcium (8.4-10.2) mg/dL Total Bilirubin (0.2-1.3) mg/dL AST (14-36) IU/L ALT (<35) IU/L Alkaline Phosphatase (38-126) U/L Total Creatine Kinase (30-135) U/L CK-MB (CK-2) CK-MB (CK-2) Rel Index Troponin I (0.01-0.034) ng/mL NT-Pro-B Natriuret Pep 1490 H (<125) pg/mL Total Protein (6.3-8.2) g/dL Albumin (3.5-5.0) g/dL Globulin (1.7-4.1) g/dL Albumin/Globulin Ratio (1.0-2.8) Lipase (23-300) U/L TSH 1.28 (0.47-4.68) uIU/mL U Opiates 300ng/mL cut (Negative) Ur Oxycodone Screen (Negative) Urine Methadone Screen (Negative) Ur Barbiturates Screen (Negative) U Tricyclic Antidepress (Negative) Ur Phencyclidine Scrn (Negative) Ur Amphetamines Screen (Negative) U Methamphetamines Scrn (Negative) Ur MDMA Scrn (Ecstasy) (Negative) U Benzodiazepines Scrn (Negative) Urine Cocaine Screen (Negative) U Marijuana (THC) Screen (Negative) Ethyl Alcohol < 10 ( - 10) mg/dL 01/05/23 Range/Units 19:27 WBC (4.5-11.0) X10^3/uL RBC (4.0-5.2) X10^6/uL Hgb (12.0-16.0) g/dL Hct (36-46) % MCV (80-100) fL MCH (26-34) PG MCHC (30-36) % RDW (11.6-14.8) % Plt Count (150-400) X10^3/uL Neut % (Auto) (50-75) % Lymph % (Auto) (25-40) % [place] % (Auto) (3-14) % Eos % (Auto) (2-4) % Baso % (Auto) (0-2) % Neut # (Auto) (7027-9950) /uL Lymph # (Auto) (5437-1327) /uL [place] # (Auto) (0-900) /uL Eos # (Auto) (0-450) /uL Baso # (Auto) (0-100) /uL PT (10.1-12.7) SECONDS INR (0.9-1.3) APTT (26-36) SECONDS D-Dimer (<500) ng/ml Sodium (137-145) mmol/L Potassium (3.4-5.1) mmol/L Chloride (98-107) mmol/L Carbon Dioxide (22-32) mmol/L BUN (7-17) mg/dL Creatinine (0.52-1.04) mg/dL Estimated GFR (>60) mL/min BUN/Creatinine Ratio (6-22) Glucose (80-110) mg/dL Calcium (8.4-10.2) mg/dL Total Bilirubin (0.2-1.3) mg/dL AST (14-36) IU/L ALT (<35) IU/L Alkaline Phosphatase (38-126) U/L Total Creatine Kinase (30-135) U/L CK-MB (CK-2) CK-MB (CK-2) Rel Index Troponin I (0.01-0.034) ng/mL NT-Pro-B Natriuret Pep (<125) pg/mL Total Protein (6.3-8.2) g/dL Albumin (3.5-5.0) g/dL Globulin (1.7-4.1) g/dL Albumin/Globulin Ratio (1.0-2.8) Lipase (23-300) U/L TSH (0.47-4.68) uIU/mL U Opiates 300ng/mL cut Negative (Negative) Ur Oxycodone Screen Negative (Negative) Urine Methadone Screen Negative (Negative) Ur Barbiturates Screen Negative (Negative) U Tricyclic Antidepress Negative (Negative) Ur Phencyclidine Scrn Negative (Negative) Ur Amphetamines Screen Negative (Negative) U Methamphetamines Scrn Negative (Negative) Ur MDMA Scrn (Ecstasy) Negative (Negative) U Benzodiazepines Scrn Negative (Negative) Urine Cocaine Screen Negative (Negative) U Marijuana (THC) Screen Negative (Negative) Ethyl Alcohol ( - 10) mg/dL Imaging Data Chest x-ray: Radiologist's Impresson: [address] [address] XRay Report Signed Patient: Galileo Voss MR#: [id number] : 1960 Acct:[id number] Age/Sex: 62 / F Date of Service: 01/05/23 Loc: ED Accession Number: [id number] ?? Procedure: XR chest 1V Ordering Provider: Kaylie Tinajero D.O. PROCEDURE:? XR CHEST 1V ? INDICATIONS:? chest pain ? TECHNIQUE:? One view of the chest was acquired.? ? COMPARISON:? [facility], CR, XR CHEST 2V, 05/14/2020, 9:05. ? FINDINGS:? ? Surgical changes and devices:? None.? ? Lungs and pleura:? Lungs are clear.? No pleural effusions or pneumothorax.? ? Mediastinum:? Mediastinal contours appear normal.? Heart size is normal.? ? Bones and chest wall:? No suspicious bony lesions.? Overlying soft tissues lenka ear unremarkable.? ? IMPRESSION:? No acute cardiopulmonary abnormality. ? ? ? Dictated by: Ryan Brewer M.D. on 01/05/2023 at 18:45 ? ? Approved by: Ryan Brewer M.D. on 01/05/2023 at 18:46?? CT scan - chest: Radiologist's Impresson: Galileo Voss??62??F??1960 ? Allergy/Adv: No Known Drug Allergies Close Chest CTA (Signed) Ryan Brewer - 01/05/23 Chest X-Ray (Signed) Ryan Brewer - 01/05/23 Echocardiogram Ultrasound (Signed) Adan Benjamin - 01/06/22 Mammogram Screening (Signed) Henrik Stack - 12/25/21 Mammogram Screening (Signed) Elisabeth Woodson - 06/04/20 Chest X-Ray (Signed) Isidro Rosales 05/14/20 Telemetry Strips 05/14/20 Mammogram Screening (Signed) RenéIbis garay - 07/05/18 Launch?[place] [id number] CT Scan Report Signed Patient: Galileo Voss MR#: [id number] : 1960 Acct:[id number] Age/Sex: 62 / F Date of Service: 01/05/23 Loc: ED Accession Number: [id number] ?? Procedure: CT angio chest PE protocol Ordering Provider: Kaylie Tinajero D.O. PROCEDURE:? CT ANGIO CHEST PE PROTOCOL ? INDICATIONS:? afib rvr, low O2 ? TECHNIQUE:? After the administration of intravenous contrast, 2 mm thick sections acquired from the pulmonary apices to the posterior costophrenic angles.? 3-dimensional maximum intensity projection (MIP) coronal and sagittal reformats were then acquired through the thorax.? For radiation dose reduction, the following was used:? automated exposure control, adjustment of mA and/or kV according to patient size.? ? COMPARISON:? None. ? FINDINGS:? Image quality:? Excellent.? ? Pulmonary arteries:? Pulmonary arteries are normal in size, and demonstrate no intraluminal filling defects to suggest central pulmonary embolism.? ? Lungs and pleura:? Lungs are clear.? No pleural effusions or pneumothorax.? Central and peripheral airways are patent.? ? Mediastinum:? Heart size is normal, without pericardial effusion.? No mediastinal or hilar adenopathy.? Thoracic aorta is normal in caliber and enhancement.? Esophagus is normal in caliber, without hiatal hernia.? ? Bones and chest wall:? No suspicious bony lesions.? Ribs and thoracic spine appear intact throughout.? Thyroid gland is normal.? No axillary or supraclavicular adenopathy.? ? Abdomen:? Visualized upper abdominal solid organs appear normal in the early arterial phase of enhancement.? ? IMPRESSION:? 1. No acute abnormality of the chest. 2. No pulmonary embolism.? ? ? Dictated by: Ryan Brewer M.D. on 01/05/2023 at 18:46 ? ? Approved by: Ryan Brewer M.D. on 01/05/2023 at 18:48?? ECG Data Attestation: I personally reviewed and interpreted this ECG as follows: Prior ECG tracings: available for review Interpretation: EKG 1. Shows tachycardia appears fairly regular with a rate of 124 occasional PVC, I do not see P waves with every QRS, NE is 262, QRS is 84 and QTC is 347. Patient has prior EKG from 2019 which shows similar RSR with incomplete right bundle. Patient had more irregular rhythm on telemetry and appeared to have cardioverted. Repeat EKG shows a rate of 76pR 130, QRS is 96 with a QTC of 497. P waves appear to be present with all QRS with incomplete bundle-branch. MDM Narrative Medical decision making narrative: This is a 62-year-old female with history of paroxysmal atrial fibrillation with infrequent episodes on reportedly a beta-matthew, no anticoagulation. Patient presents today with tachycardia which is fairly regular and EKG but actually looks quite irregular on telemetry. She had received 10-15 mg of diltiazem with EMS EN route had been 160 and then decreased to 120 heart rate, while here patient clearly flipped into a sinus rhythm at a rate 70s. Patient also notes she stopped drinking abruptly about 3 days ago I suspect this is helping to trigger her arrhythmia. CBC shows a normal white count, platelets and hemoglobin. Coags show a dimer 557, age adjusted this is negative patient had a hypoxic episode so CT angio was obtained. Electrolyte shows somewhat 135 CO2 of 19 potassium 3.6 normal renal function, glucose is 184 with bilirubin of 1.9, otherwise normal AST ALT with a negative troponin negative lipase and BNP of 14 90 with a negative trope. CT angio showed no PE or change. Patient had had symptoms consistent with withdrawals before so was given a dose of phenobarbital this may have contributed to her hypoxia she was not before. No other known go ingestion. Patient is sleepy but easily arousable. She is not required more than 2 L to be 100% and was weaned off after a brief period. Patient is feeling much improved. She is in a sinus rhythm again. Plan for patient to continue her beta-matthew, follow up as needed. DIGITAL PRODUCTION ARTIST did stop by the talk about if she wants any assistance with alcohol treatment. Patient defers. She feels comfortable returning home. Reviewed all findings, need for follow-up and return precautions. Discharge Plan Departure Patient Disposition: Home Clinical Impression: Atrial fibrillation with rapid ventricular response Instructions: DI for Arrhythmias Activity Restrictions/Additional Instructions: Had a atrial tachycardia today, I would recommend following up with primary care and for Cardiology. Copies of your EKGs are included to share with your follow-up visits particularly Cardiology. Please call to set up an appointment tomorrow. Your cardiac arrhythmia may have been related to stopping drinking alcohol, this can sometimes trigger if you already have an underlying electrical arrhythmia. You did receive a medication that can make you sleepy, do not drink alcohol with this medication today. Please return for recurrent symptoms, lightheadedness or passing out, chest pain, shortness of breath, new swelling in her extremities, persistent vomiting, if you are having tremors, shakes or feelings or signs of withdrawal. Prescriptions: No Action Xarelto 20 mg tablet 20 mg PO QPM Qty: 30 0RF Rx Instructions: must administer with evening meal Referrals: Eden Camarillo MD [Physician] - Lino Winslow ARNP [[employer]] - Nhung Guerrero MD [Primary Care Provider] - Stand Alone Forms: Patient Portal/API
--- NOTE | 2023-01-05 17:02 | DI.RAD.S_ITS ---
PROCEDURE: XR CHEST 1V INDICATIONS: chest pain TECHNIQUE: One view of the chest was acquired. COMPARISON: [facility], CR, XR CHEST 2V, 05/14/2020, 9:05. FINDINGS: Surgical changes and devices: None. Lungs and pleura: Lungs are clear. No pleural effusions or pneumothorax. Mediastinum: Mediastinal contours appear normal. Heart size is normal. Bones and chest wall: No suspicious bony lesions. Overlying soft tissues appear unremarkable. IMPRESSION: No acute cardiopulmonary abnormality. Dictated by: Ryan Brewer M.D. on 01/05/2023 at 18:45 Approved by: Ryan Brewer M.D. on 01/05/2023 at 18:46
[2023-01-05] MEDS: SODIUM CHLORIDE 0.9% 1,000 ML 1000 ML IV (17:15)
[2023-01-05 17:32] LABS: Add Manual Diff / Slide Review NO; Basophils Absolute Auto 0 /uL (0-100); Basophils Percent Auto 0.7 % (0-2); Eosinophils Absolute Auto 0 /uL (0-450); Eosinophils Percent Auto 0.1 % (2-4); Hematocrit 39.8 % (36-46); Hemoglobin 13.6 g/dL (12.0-16.0); Lymphocytes Absolute Auto 700 /uL (1100-4500); Lymphocytes Percent Auto 16.3 % (25-40); Mean Corpuscular HGB Conc 34.2 % (30-36); Mean Corpuscular Hemoglobin 30.5 PG (26-34); Mean Corpuscular Volume 89.2 fL (80-100); Monocytes Absolute Auto 300 /uL (0-900); Monocytes Percent Auto 6.4 % (3-14); Neutrophils Absolute Auto 3500 /uL (1500-7000); Neutrophils Percent Auto 76.5 % (50-75); Platelet Count 165 X10^3/uL (150-400); Red Blood Cell Count 4.47 X10^6/uL (4.0-5.2); Red Cell Distribution Width 15.5 % (11.6-14.8); White Blood Cell Count 4.6 X10^3/uL (4.5-11.0)
[2023-01-05] MEDS: PHENobarbital 65 MG/ML VIAL 260 MG IV (17:36)
[2023-01-05 17:37] LABS: HEMOLYSIS < 15 (0-50)
[2023-01-05 17:44] LABS: Alanine Aminotransferase 24 IU/L (<35); Albumin 4.5 g/dL (3.5-5.0); Albumin Globulin Ratio 1.3 (1.0-2.8); Alkaline Phosphatase 95 U/L (38-126); Aspartate Aminotransferase 31 IU/L (14-36); BUN Creatinine Ratio 10.6 (6-22); Bilirubin Total 1.9 mg/dL (0.2-1.3); Blood Urea Nitrogen 7 mg/dL (7-17); Calcium 9.3 mg/dL (8.4-10.2); Carbon Dioxide 19 mmol/L (22-32); Chloride 99 mmol/L (98-107); Creatine Kinase 101 U/L (30-135); Estimated Glomerular Filt Rate > 60 mL/min (>60); Globulin 3.4 g/dL (1.7-4.1); Glucose 184 mg/dL (80-110); INR 1.1 (0.9-1.3); Lipase 132 U/L (23-300); Potassium 3.6 mmol/L (3.4-5.1); Prothrombin Time 12.2 SECONDS (10.1-12.7); Sodium 135 mmol/L (137-145); Total Protein 7.9 g/dL (6.3-8.2)
[2023-01-05 17:45] LABS: D Dimer 557 ng/ml (<500); Ethanol (ETOH) < 10 mg/dL
[2023-01-05 17:46] LABS: PTT Partial Thromboplastin Tim 25 SECONDS (26-36)
[2023-01-05 17:52] LABS: NT-proBNP (BNP-Adult 18+) 1490 pg/mL (<125)
[2023-01-05 17:55] LABS: Troponin I 0.012 ng/mL (0.01-0.034)
--- NOTE | 2023-01-05 18:01 | DI.CT.S_ITS ---
PROCEDURE: CT ANGIO CHEST PE PROTOCOL INDICATIONS: afib rvr, low O2 TECHNIQUE: After the administration of intravenous contrast, 2 mm thick sections acquired from the pulmonary apices to the posterior costophrenic angles. 3-dimensional maximum intensity projection (MIP) coronal and sagittal reformats were then acquired through the thorax. For radiation dose reduction, the following was used: automated exposure control, adjustment of mA and/or kV according to patient size. COMPARISON: None. FINDINGS: Image quality: Excellent. Pulmonary arteries: Pulmonary arteries are normal in size, and demonstrate no intraluminal filling defects to suggest central pulmonary embolism. Lungs and pleura: Lungs are clear. No pleural effusions or pneumothorax. Central and peripheral airways are patent. Mediastinum: Heart size is normal, without pericardial effusion. No mediastinal or hilar adenopathy. Thoracic aorta is normal in caliber and enhancement. Esophagus is normal in caliber, without hiatal hernia. Bones and chest wall: No suspicious bony lesions. Ribs and thoracic spine appear intact throughout. Thyroid gland is normal. No axillary or supraclavicular adenopathy. Abdomen: Visualized upper abdominal solid organs appear normal in the early arterial phase of enhancement. IMPRESSION: 1. No acute abnormality of the chest. 2. No pulmonary embolism. Dictated by: Ryan Brewer M.D. on 01/05/2023 at 18:46 Approved by: Ryan Brewer M.D. on 01/05/2023 at 18:48
--- NOTE | 2023-01-05 18:48 | PC.NURSE ---
Patient's heart rate changed on its own. Provider was made aware and ordered a repeat EKG. Patient states she still feels dizzy.
--- NOTE | 2023-01-05 18:54 | PC.NURSE ---
Patients oxygen saturations dropped from 95% to 77% on room air within 1 minute. Physician and RN at bedside to apply 2L nasal cannula. Patients o2 increased to 99% on NC.
[2023-01-05 19:03] LABS: TSH w/ Reflex to FT4 1.28 uIU/mL (0.47-4.68)
--- NOTE | 2023-01-05 19:20 | PC.NURSE ---
patient ambulated to bathroom on room air with o2 saturation maintaining 94%.
--- NOTE | 2023-01-05 19:24 | CM.SWNOTE ---
ED TOOL CHECKER Note TOOL CHECKER receives consult to meet with patient. Patient is 62 y/o female who presents to ED via EMS due to concern for palpitations. Patient's PCP is Dr. Guerrero, Patient has [employer] and [employer] insurance. TOOL CHECKER enters room to meet with patient, patient declines TOOL CHECKER's services and endorses that she can manage her needs. TOOL CHECKER reviews the above with RN and ED provider. TONIO HollySW
[2023-01-05 19:43] LABS: UR Morphine/Opiate cutoff 300 Negative (Negative); Ur Creatinine Normal (Normal); Ur Specific Gravity Normal (Normal); Urine Amphetamines Negative (Negative); Urine Barbiturates Negative (Negative); Urine Benzodiazepines Negative (Negative); Urine Cocaine Negative (Negative); Urine MDMA Negative (Negative); Urine Methadone Negative (Negative); Urine Methamphetamines Negative (Negative); Urine Oxycodone Negative (Negative); Urine Phencyclidine Negative (Negative); Urine Tetrahydrocannabinol Negative (Negative); Urine Tricyclic Antidepressant Negative (Negative); Urine pH Normal (Normal)
== END 2023-01-05 20:04 | disposition home or self-care (01) ==
PROVIDERS: Emergency Provider Emergency Medicine; PCP Family Medicine
DX: I48.20 Chronic atrial fibrillation, unspecified (principal); Z79.01 Long term (current) use of anticoagulants; R07.9 Chest pain, unspecified
CPT/HCPCS: 71045; 71275; 80053; 80305; 80320; 82550; 83690; 83880; 84443; 84484; 85025; 85379; 85610; 85730; 93005; 93010; 96361; 96374; 99284; J2560